=== PATIENT | male | born 2000 | race African-American/Black ===

== ENCOUNTER 2022-02-14 18:34 | Emergency (ER) | payer OTHER ==
[2022-02-14 18:42] VITALS: BP 138/93; PULSE 70; TEMP 98.2
[2022-02-14 19:22] LABS: BASO # 0.1 K/mm3 (0.0-0.2); BASO % 0.6 % (0.0-2.0); EOS # 0.3 K/mm3 (0.0-0.7); GRAN # 5.1 K/mm3 (1.4-6.5); GRAN % 60.9 % (42.2-75.2); HEMOGLOBIN 14.6 g/dl (13.5-18.0); LYMPH # 2.4 K/mm3 (1.2-3.4); MEAN CELL VOLUME 84 fl (80.0-100.0); MEAN CORPUSCULAR HEMOGLOBIN 27 pg (27-31); MEAN CORPUSCULAR HGB CONC 32 g/dl (33.0-37.0); MEAN PLATELET VOLUME 11.9 fl (7.4-10.4); MONO # 0.6 K/mm3 (0.1-0.6); MONO % 7.3 % (1.7-9.3); PLATELET COUNT 209 K/mm3 (130-400); RED BLOOD COUNT 5.33 M/mm3 (4.20-5.60)
[2022-02-14 19:39] LABS: ALANINE AMINOTRANSFERASE 10 U/L (0-55); ALBUMIN 4.2 gm/dL (3.5-5.0); ALKALINE PHOSPHATASE 77 U/L (40-150); ANION GAP 10 mmol/L (7-16); AST,SGOT 14 U/L (5-34); BILIRUBIN,TOTAL 0.4 mg/dL (0.2-1.2); BLOOD UREA NITROGEN 10 mg/dL (9-21); CALCIUM 9.6 mg/dL (8.4-10.2); CARBON DIOXIDE 25 mmol/L (22-29); CHLORIDE 105 mmol/L (98-107); CREATININE, serum 1.29 mg/dL (0.72-1.25); GLUCOSE 93 mg/dL (70-99); POTASSIUM 4.4 mmol/L (3.5-4.5); SODIUM 140 mmol/L (136-145); TOTAL PROTEIN 7.6 gm/dL (6.2-8.1)
[2022-02-14 19:48] LABS: TROPONIN-I < 0.010 ng/mL (0.00-0.033)
== END 2022-02-14 20:19 | disposition home or self-care (01) ==
LOC: COL.ER 18:34
PROVIDERS: Emergency Medicine
DX: R00.2 Palpitations (principal); R79.89 Other specified abnormal findings of blood chemistry